=== PATIENT | male | born 1960 | race Caucasian/White ===

== ENCOUNTER 2022-06-11 21:54 | Emergency (ER) | payer OTHER ==
[2022-06-11 22:03] VITALS: TEMP 98.4
[2022-06-11] MEDS ORDERED: ONDANSETRON 4 MG/2 ML VIAL IVP STA (22:16)
[2022-06-11] MEDS ORDERED: MECLIZINE 12.5 MG TAB PO STA (22:16)
--- NOTE | 2022-06-11 22:29 | ED ---
Dizziness HPI - General Chief Complaint: Dizziness Stated Complaint: Dizziness Time Seen by Provider: 06/11/22 21:56 Source: patient Mode of arrival: EMS Limitations: no limitations - History of Present Illness Initial Comments: This patient is a 61-year-old man who presents to have evaluation of vertigo symptoms that started tonight while he was at dinner. The patient noticed that whenever he moves his head he was becoming very "dizzy." He states that it felt like everything was spinning. He had difficulty walking without stumbling into things. He also then developed nausea and later vomiting as well. He notes his symptoms are better if he does not move his had any fixes his gaze on things. Symptoms worse with turning or moving his head. MD Complaint: dizziness, difficulty walking -: hour(s) Timing: sudden onset Description: "room spinning", difficulty walking History of Same: No History of Trauma: No Severity: severe Improves With: remaining still Worsens With: movement Associated Symptoms: denies other symptoms - Related Data Previous Rx's Medication Instructions Recorded Meclizine [Antivert] 25 mg PO TID PRN #15 tab 06/12/22 Allergies Allergy/AdvReac Type Severity Reaction Status Date / Time amoxicillin Allergy Unknown Verified 06/11/22 22:08 Penicillins Allergy Unknown Verified 06/11/22 22:08 Review of Systems ROS Statement: Those systems with pertinent positive or pertinent negative responses have been documented in the HPI. ROS Other: All systems not noted in ROS Statement are negative. Past Medical History Past Medical History: Coronary Artery Disease (CAD), Diabetes Mellitus, Hyperlipidemia, Hypertension History of Any Multi-Drug Resistant Organisms: None Reported Past Surgical History: Coronary Bypass/CABG Past Psychological History: No Psychological Hx Reported Smoking Status: Current some day smoker Past Alcohol Use History: Occasional Past Drug Use History: None Reported General Exam Limitations: no limitations General appearance: alert, in no apparent distress Head exam: Present: atraumatic, normocephalic Eye exam: Present: normal appearance, PERRL, EOMI, nystagmus. Absent: scleral icterus, conjunctival injection Neck exam: Present: normal inspection, full ROM. Absent: tenderness, meningismus Respiratory exam: Present: normal lung sounds bilaterally. Absent: respiratory distress, wheezes, rales, rhonchi, stridor Cardiovascular Exam: Present: regular rate, normal rhythm (There are multiple skipped beat), normal heart sounds. Absent: systolic murmur, diastolic murmur, rubs, gallop GI/Abdominal exam: Present: soft. Absent: distended, tenderness, guarding, rebound, rigid, mass Extremities exam: Present: normal inspection, normal capillary refill. Absent: pedal edema, calf tenderness Back exam: Present: normal inspection. Absent: CVA tenderness (R), CVA tenderness (L) Neurological exam: Present: alert, oriented X3, CN II-XII intact. Absent: motor sensory deficit Skin exam: Present: warm, dry, intact, normal color. Absent: rash Course Vital Signs 06/11/22 06/12/22 21:57 02:36 Temperature 98.4 F Pulse Rate 81 70 Respiratory 16 18 Rate Blood Pressure 198/91 158/87 O2 Sat by Pulse 98 98 Oximetry EKG Findings - EKG Results: EKG: interpreted by ERMD, sinus rhythm (With frequent PVCs, rate 79 bpm), normal axis, normal QRS - Blocks, [place], Hypertrophy, ST Abn: Repolarization changes or abnormalities: nonspecific abnormality, ST segment, and/or T wave Medical Decision Making - Lab Data Result diagrams: 06/11/22 22:21 06/11/22 22:21 Lab Results 06/11/22 06/11/22 06/11/22 Range/Units 22:21 22:21 22:21 WBC 5.4 (3.8-10.6) k/uL RBC 4.97 (4.30-5.90) m/uL Hgb 15.4 (13.0-17.5) gm/dL Hct 45.5 (39.0-53.0) % MCV 91.5 (80.0-100.0) fL MCH 31.1 (25.0-35.0) pg MCHC 33.9 (31.0-37.0) g/dL RDW 12.5 (11.5-15.5) % Plt Count 177 (150-450) k/uL MPV 8.3 Neutrophils % 67 % Lymphocytes % 24 % Monocytes % 5 % Eosinophils % 2 % Basophils % 1 % Neutrophils # 3.6 (1.3-7.7) k/uL Lymphocytes # 1.3 (1.0-4.8) k/uL Monocytes # 0.3 (0-1.0) k/uL Eosinophils # 0.1 (0-0.7) k/uL Basophils # 0.0 (0-0.2) k/uL Sodium 136 L (137-145) mmol/L Potassium 3.7 (3.5-5.1) mmol/L Chloride 104 (98-107) mmol/L Carbon Dioxide 27 (22-30) mmol/L Anion Gap 5 mmol/L BUN 16 (9-20) mg/dL Creatinine 0.93 (0.66-1.25) mg/dL Est GFR (CKD-EPI)AfAm >90 (>60 ml/min/1.73 sqM) Est GFR (CKD-EPI)NonAf 87 (>60 ml/min/1.73 sqM) Glucose 143 H (74-99) mg/dL Calcium 9.1 (8.4-10.2) mg/dL Total Bilirubin 0.9 (0.2-1.3) mg/dL AST 28 (17-59) U/L ALT 19 (4-49) U/L Alkaline Phosphatase 71 (38-126) U/L Troponin I <0.012 (0.000-0.034) ng/mL Total Protein 6.2 L (6.3-8.2) g/dL Albumin 3.8 (3.5-5.0) g/dL Disposition Clinical Impression: Vertigo Disposition: HOME SELF-CARE Condition: Good Instructions (If sedation given, give patient instructions): Vertigo (DC) Prescriptions: Meclizine [Antivert] 25 mg PO TID PRN #15 tab PRN Reason: Vertigo Is patient prescribed a controlled substance at d/c from ED?: No Referrals: aLi Goss Jr, [Primary Care Provider] - 1-2 days
[2022-06-11 22:34] LABS: Basophils % (A) 1 %; Eosinophils # (A) 0.1 k/uL (0-0.7); Eosinophils % (A) 2 %; HCT 45.5 % (39.0-53.0); HGB 15.4 gm/dL (13.0-17.5); Lymphocytes # (A) 1.3 k/uL (1.0-4.8); Lymphocytes % (A) 24 %; MCH 31.1 pg (25.0-35.0); MCHC 33.9 g/dL (31.0-37.0); MCV 91.5 fL (80.0-100.0); Mean Platelet Volume 8.3; Monocytes # (A) 0.3 k/uL (0-1.0); Monocytes % (A) 5 %; Neutrophils # (A) 3.6 k/uL (1.3-7.7); Neutrophils % (A) 67 %; Platelet Count 177 k/uL (150-450); RBC 4.97 m/uL (4.30-5.90); RDW 12.5 % (11.5-15.5); WBC 5.4 k/uL (3.8-10.6)
[2022-06-11 22:39] LABS: ALT 19 U/L (4-49); AST 28 U/L (17-59); African American GFR (CKD) >90 (>60 ml/min/1.73 sqM); Albumin 3.8 g/dL (3.5-5.0); Alkaline Phosphatase 71 U/L (38-126); Anion Gap 5 mmol/L; Blood Urea Nitrogen 16 mg/dL (9-20); Calcium 9.1 mg/dL (8.4-10.2); Carbon Dioxide 27 mmol/L (22-30); Chloride 104 mmol/L (98-107); Glucose 143 mg/dL (74-99); Non-African American GFR(CKD) 87 (>60 ml/min/1.73 sqM); Potassium 3.7 mmol/L (3.5-5.1); Sodium 136 mmol/L (137-145); Total Bilirubin 0.9 mg/dL (0.2-1.3); Total Protein 6.2 g/dL (6.3-8.2)
--- NOTE | 2022-06-12 00:43 | CT ---
EXAMINATION TYPE: CT angio head neck DATE OF EXAM: 06/11/2022 COMPARISON: None HISTORY: vertigo CT DLP: 452.4 mGycm Automated exposure control for dose reduction was used. CONTRAST: Performed with IV Contrast, patient injected with 65 mL of Isovue 370. Images obtained from the aortic arch to the vertex of the brain with IV contrast. There is very littl e contrast in the cervical carotid arteries and examination virtually nondiagnostic. There appears to be arterial flow in both vertebral arteries. There appears to be some arterial flow in the distal in ternal carotid arteries bilaterally. Carotid artery bifurcations are not well evaluated. I suspect bi lateral more than 50% stenosis of the origins of both internal carotid arteries. There is suboptimal contrast density in the intracranial arteries. There is arterial flow in the ante rior middle and posterior cerebral arteries. No mass effect. No evidence of intracranial aneurysm or neovascularity. Venous sinuses appear normal. No mass effect. No evidence of intracranial hemodynamic arterial stenosis. IMPRESSION: Suboptimal exam. No evidence of any significant intracranial angiographic abnormality. There is probably more than 50% stenosis of the origins of both internal carotid arteries. Vertebral artery evaluation and the carotid artery bifurcations almost nondiagnostic.
--- NOTE | 2022-06-12 00:47 | XR ---
EXAMINATION TYPE: XR chest 1V portable DATE OF EXAM: 06/11/2022 COMPARISON: 11/13/2012 HISTORY: Vertigo TECHNIQUE: FINDINGS: There is no heart failure nor confluent pneumonic infiltrate. Costophrenic angles are fairl y clear. No pulmonary consolidation. There are sternal wires. There are chest leads. Bony thorax is i ntact. IMPRESSION: No active cardiopulmonary disease. There is clearing of the pleural fluid compared to old exams
[2022-06-12 02:37] VITALS: BP 158/87; PULSE 70; RESP 18
== END 2022-06-12 02:37 | disposition home or self-care (01) ==
LOC: EC 21:54
DX: R42 Dizziness and giddiness (principal); F17.200 Nicotine dependence, unspecified, uncomplicated; E11.9 Type 2 diabetes mellitus without complications; I10 Essential (primary) hypertension; Z88.0 Allergy status to penicillin
CPT/HCPCS: 36415; 93005; 80053; 84484; 85025; 71045; 70496; 70498; 99284; Q9967